=== PATIENT | female | born 1960 | race Caucasian/White ===

== ENCOUNTER 2022-06-28 14:24 | Emergency (ER) | payer OTHER ==
[~2022-06-28] VITALS: Ht 167.6 cm; Wt 54.4 kg
--- NOTE | 2022-06-28 14:25 | NUR ---
Pt BIB [facility] from home, pt's son called, since his mom was drinking and been having multiple falls. Pt is awake and vernally responsive, but disoriented.
--- NOTE | 2022-06-28 14:27 | NUR ---
Pt is a/o, and able to recall time, place and situation. Pt's son Chintan at the bedside.
--- NOTE | 2022-06-28 14:27 | NUR ---
Dr Ratliff at the bedside for MSE, and speaking to pt and pt's son.
--- NOTE | 2022-06-28 14:40 | NUR ---
PT out of ER for Ct scan.
--- NOTE | 2022-06-28 14:52 | NUR ---
Pt is bed from Ct. Refused blood draw,stating "I am fine". Dr Ratliff made aware.
--- NOTE | 2022-06-28 15:09 | NUR ---
Patient discharged to home in stable condition. Written and verbal after care instructions given. Patient verbalizes understanding of instructions. Stressed follow up or return to ER for worsening s/s. Pt walked out of ER accompained by son.
[2022-06-28 15:11] VITALS: BP 107/67
== END 2022-06-28 15:17 | disposition home or self-care (01) ==
LOC: ER 14:25
DX: S09.90XA Unspecified injury of head, initial encounter (principal); W19.XXXA Unspecified fall, initial encounter; Y92.89 Other specified places as the place of occurrence of the external cause; F10.10 Alcohol abuse, uncomplicated; R29.6 Repeated falls
CPT/HCPCS: 70450; A4663